=== PATIENT | male | born 1950 | race African-American/Black ===

== ENCOUNTER 2016-10-05 15:51 | Emergency (ER) | payer OTHER ==
[~2016-10-05] VITALS: Ht 167.6 cm; Wt 71.7 kg
[~2016-10-05 15:51] MED LIST: BENADRYL25 MG PO; CIPRO500 MG PO; FLOMAX0.4 MG PO; HYDROCHLOROTHIA25 MG PO; MORPHINE SULFAT15 M1 PO; NEURONTIN300 MG PO; OXYCONTIN10 MG PO; SENNA8.6 M1 PO; SINEQUAN25 MG PO; STOOL SOFTENER100 MG PO; TYLENOL REGULA325 MG PO; ZOFRAN4 MG PO
[2016-10-05 16:26] LABS: ADD MIUA? YES; BILIRUBIN NEGATIVE; BLOOD SMALL; COLOR YELLOW ((YELLOW)); GLUCOSE (STRIP) NEGATIVE; KETONES NEGATIVE; LEUKOCYTES LARGE; NITRITE NEGATIVE; PROTEIN (STRIP) 100; SPECIFIC GRAVITY 1.021 (1.000-1.030)
[2016-10-05 16:34] LABS: BACTERIA NONE SEEN /HPF; EPITHELIAL CELLS NONE SEEN /HPF; MUCUS NONE SEEN /LPF; RED BLOOD CELLS 40-50 /HPF (0-5); UCUL ADDED? YES; WHITE BLOOD CELLS TNTC /HPF (0-5)
[2016-10-05 17:12] LABS: HEMATOCRIT 43.5 % (38.0-50.0); MCH 30.7 PG (29.0-34.0); MCHC 33.6 G/DL (30.0-36.0); MCV 91.6 FL (86-99); MEAN PLAT.VOLUME 10.3 uM^3 (9.0-12.4); PLATELET COUNT 242 K/uL (156-360); RBC DIS.WIDTH-CV 12.4 % (11.8-14.6); RBC DIS.WIDTH-SD 42.3 % (39-53); RED BLOOD COUNT 4.75 M/uL (4.00-5.50); WHITE BLOOD COUNT 5.3 K/uL (4.1-10.2)
[2016-10-05 17:23] LABS: CHLORIDE 105 mEq/L (99-109); POTASSIUM 5.1 mEq/L (3.7-5.4); SODIUM 140 mEq/L (136-147)
[2016-10-05 17:25] LABS: GLUCOSE 89 mg/dL (70-99)
[2016-10-05 17:26] LABS: ANION GAP 10 MEQ/L (2-14)
[2016-10-05 17:27] LABS: TOTAL BILIRUBIN 0.4 mg/dL (0.0-1.0)
[2016-10-05 17:29] LABS: ALKALINE PHOSPHATASE 73 IU/L (3-129); GFR ESTIMATE (CALCULATED) > 59 mL/min/
[2016-10-05 17:30] LABS: UREA NITROGEN (BUN) 22 mg/dL (9-23)
[2016-10-05 17:32] LABS: LIPASE 29 U/L (1.0-51.0)
[2016-10-05] MEDS ORDERED: CIPRO500 MG PO (19:08)
[2016-10-05 19:17] VITALS: BP 198/100
[2016-10-06 13:52] LABS: CHLAMYDIA TRACHOMATIS NEGATIVE; NEISSERIA GONORRHOEAE POSITIVE
== END 2016-10-05 19:32 | disposition home or self-care (01) ==
LOC: EME 15:51
PROVIDERS: Physician Assistant Medical
DX: N39.0 Urinary tract infection, site not specified (principal); A64 Unspecified sexually transmitted disease; R31.9 Hematuria, unspecified; R10.84 Generalized abdominal pain; I10 Essential (primary) hypertension; Z88.0 Allergy status to penicillin; Z87.891 Personal history of nicotine dependence
CPT/HCPCS: 74000; 80053; 81003; 83690; 85027; 87077; 87086; 87185; 87491; 87591; 99281; 99284; J0696